=== PATIENT | female | born 1960 | race African-American/Black ===

== ENCOUNTER 2017-10-28 14:44 | Emergency (ER) | payer OTHER ==
[2017-10-28] MEDS: SOD CHLORIDE 0.9% 1,000 ML IV ×2 (14:58→17:26)
[2017-10-28] MEDS: ONDANSETRON 4 MG INJ IV ×3 (16:01→19:03)
[2017-10-28] MEDS: FAMOTIDINE 20 MG INJ IV (16:01)
[2017-10-28] MEDS: LORAZEPAM 2 MG INJ IV (16:02)
[2017-10-28] MEDS: morphine 4 MG/ML VIAL IV (16:02)
[2017-10-28 16:22] LABS: ADD MAN DIFF? NO
[2017-10-28 16:24] LABS: BASOPHILS % 0.1 % (0.0-2.0); HEMATOCRIT 36.3 % (37.0-47.0); HEMOGLOBIN 11.9 g/dl (12.0-16.0); LYMPHOCYTES # 0.3 10^3/ul (0.8-2.9); LYMPHOCYTES % 2.2 % (15.0-51.0); MEAN CORPUSCULAR HEMOGLOBIN 28.6 pg (29.0-33.0); MEAN CORPUSCULAR HGB CONC 32.8 g/dl (32.0-37.0); MEAN CORPUSCULAR VOLUME 87.3 fl (82.0-101.0); MEAN PLATELET VOLUME 12.6 fl (7.4-10.4); MONOCYTE # 0.1 10^3/ul (0.3-0.9); NEUTROPHIL # 12.9 10^3/ul (1.6-7.5); NEUTROPHILS % 96.3 % (39.0-77.0); PLATELET COUNT 191 10^3/UL (140-415); RED BLOOD COUNT 4.16 10^6/ul (4.20-5.40); RED CELL DISTRIBUTION WIDTH 14.4 % (11.5-14.5)
[2017-10-28 16:24] LABS: WHITE BLOOD COUNT 13.3 10^3/ul (4.8-10.8)
[2017-10-28 16:43] LABS: ALANINE AMINOTRANSFERASE 36 IU/L (13-69); ALBUMIN/GLOBULIN RATIO 1.51; ALKALINE PHOSPHATASE 80 IU/L (42-121); AMYLASE 70 U/L (11-123); ANION GAP 22 (8-16); ASPARTATE AMINO TRANSFERASE 44 IU/L (15-46); BILIRUBIN,INDIRECT 0.4 mg/dl (0-1.1); BILIRUBIN,TOTAL 0.4 mg/dl (0.2-1.3); BLOOD UREA NITROGEN 8 mg/dl (7-20); CALCIUM 10.1 mg/dl (8.4-10.2); CARBON DIOXIDE 24 mmol/L (21-31); CHLORIDE 97 mmol/L (97-110); CREATININE 0.57 mg/dl (0.44-1.00); GLUCOSE 181 mg/dl (70-220); LIPASE 26 U/L (23-300); POTASSIUM 3.8 mmol/L (3.5-5.1); SODIUM 139 mmol/L (135-144); TOTAL PROTEIN 8.3 g/dl (6.1-8.1)
[2017-10-28 16:56] LABS: TROPONIN-I < 0.012 ng/ml (0.00-0.12)
[2017-10-28 16:57] LABS: INR 0.97; PARTIAL THROMBOPLASTIN TIME 28.3 Sec (25.0-35.0)
[2017-10-28] MEDS: HYDROmorphONE 0.5 MG/0.5 ML SYG IV ×2 (17:26→19:03)
== END 2017-10-28 20:30 | disposition home or self-care (01) ==
LOC: E/R 14:44
DX: R11.2 Nausea with vomiting, unspecified (principal); F17.210 Nicotine dependence, cigarettes, uncomplicated; Z86.010 Personal history of colon polyps
CPT/HCPCS: 80053; 82150; 83690; 84484; 85025; 85610; 85730; 96374; 96375; 96376; 99284-25